=== PATIENT | female | born 1995 | race Caucasian/White ===

== ENCOUNTER → 2016-09-28 | Outpatient (REF) ==
[~2016-09-28] MED LIST: NO HOME MEDICATIONS
== END ==
LOC: WSOH 09:04
DX: Z02.1 Encounter for pre-employment examination (principal)

== ENCOUNTER → 2016-10-05 | Outpatient (REF) | LOC: WSOH 08:59 | DX: Z00.00 Encounter for general adult medical examination without abnormal findings (principal) ==